=== PATIENT | male | born 2005 | race Caucasian/White ===

== ENCOUNTER 2025-11-05 01:46 | Emergency (ER) | payer OTHER ==
[~2025-11-05] VITALS: Ht 175.3 cm; Wt 64.7 kg
[2025-11-05 02:06] LABS: BASOPHILS 0.7 % (0.2-1.2); EOSINOPHILS 1.1 % (0.8-7.0); LYMPHOCYTES 14.9 % (21.8-53.1); MCH 28.4 PG (25.7-32.2); MCHC 33.2 g/dL (32.3-36.5); MCV 85.6 fL (79.0-92.2); MONOCYTES 9.7 % (5.3-12.2); NEUTROPHILS 73.3 % (34.0-67.9); RBC 4.64 M/uL (4.63-6.08)
[2025-11-05 02:22] LABS: BLOOD/HGB, URINE NEGATIVE (Negative); KETONE, URINE NEGATIVE (Negative); LEUK ESTERASE, URINE NEGATIVE (negative); NITRITE, URINE NEGATIVE (negative)
[2025-11-05 02:36] LABS: ALCOHOL, MEDICAL <3 mg/dL (<3); ALT (SGPT) 36 U/L (14-59); AST (SGOT) 15 U/L (15-37); GLOMERULAR FILTRATION RATE,EST 140 mL/min (>60); PROTEIN, TOTAL 8.1 g/dL (6.4-8.2); TSH, 3RD GENERATION 1.952 uIU/mL (0.516-4.130); UREA NITROGEN 16 mg/dL (7-18)
[2025-11-05 02:39] LABS: AMPHETAMINES, URINE POSITIVE (NEGATIVE); BARBITURATES, URINE NEGATIVE (NEGATIVE); BENZODIAZEPINE, URINE NEGATIVE (NEGATIVE); CANNABINOID, URINE NEGATIVE (NEGATIVE); COCAINE, URINE NEGATIVE (NEGATIVE); ECSTASY, URINE POSITIVE (NEGATIVE); FENTANYL, URINE NEGATIVE (NEGATIVE); METHADONE, URINE NEGATIVE (NEGATIVE); OPIATES, URINE NEGATIVE (NEGATIVE); OXYCODONE, URINE NEGATIVE (NEGATIVE); PHENCYCLIDINE, URINE NEGATIVE (NEGATIVE)
[2025-11-05 03:53] LABS: N. GONORRRHOEAE BY PCR NOT DETECTED (NOT DETECT)
== END 2025-11-05 06:00 | disposition home or self-care (01) ==
LOC: ED 01:46
PROVIDERS: Internal Medicine
DX: R45.851 Suicidal ideations (principal); F15.90 Other stimulant use, unspecified, uncomplicated
CPT/HCPCS: 36415; 80053; 80307; 81003; 84443; 85025; 99285; G0480